=== PATIENT | female | born 1940 | race Caucasian/White ===

== ENCOUNTER 2016-12-22 09:37 | Day surgery (SDC) | payer OTHER, BC ==
[2016-12-21 15:24] VITALS: BMI 29.2
[2016-12-22] MEDS ORDERED: PROPOFOL 20 ML ONE ×3 (10:22)
[2016-12-22] MEDS ORDERED: LIDOCAINE HCL/PF 2% SDV 5ML VIAL ONE (10:22)
[2016-12-22 11:39] VITALS: TEMP 97.8
[2016-12-22 12:28] VITALS: BP 134/64; PULSE 67
--- NOTE | 2016-12-23 14:24 | PATH ---
Surgical Pathology Report Patient Name: JANELLE ZAMBRANO [facility]. Rec. #: [id number] /Age/Gender: 1940 (Age: 76) / F Account: [id number] Location: U-ENDOSCOPY Taken: 12/22/2016 Received: 12/22/2016 Reported: 12/23/2016 Physicians: Oscar Chin D.O. Specimen(s) Received BX PROXIMAL TRANSVERSE COLON POLYP Clinical History History of colon polyps and constipation Transverse colon polyp, diverticulosis, tattoo Final Diagnosis COLON, PROXIMAL TRANSVERSE, POLYP, BIOPSY: POLYPOID FRAGMENTS OF COLONIC MUCOSA WITH MILD ACTIVE INFLAMMATION, LAMINA PROPRIA EDEMA AND FOCAL HYPERPLASTIC CHANGES MOST CONSISTENT WITH INFLAMMATORY-TYPE POLYP. Electronically Signed David Valles M.D. Gross Description Received in formalin, labeled "biopsy proximal transverse colon polyp" are 3 lima, irregular portions of soft tissue ranging from 0.1-0.3 cm in greatest dimension. The specimens are submitted in toto in one cassette. 12/22/201612/22/2016
== END 2016-12-22 12:27 | disposition home or self-care (01) ==
LOC: JOR 09:37 → JASU-ENDO 09:37
PROVIDERS: ATTEND Internal Medicine Gastroenterology
PROC: 0DBL8ZX Excision of Transverse Colon, Via Natural or Artificial Opening Endoscopic, Diagnostic (ICD-10-PCS; principal; 2016-12-22 10:30)
DX: Z12.11 Encounter for screening for malignant neoplasm of colon (principal); Z86.010 Personal history of colon polyps; K57.30 Diverticulosis of large intestine without perforation or abscess without bleeding; D12.3 Benign neoplasm of transverse colon; K64.8 Other hemorrhoids; K63.89 Other specified diseases of intestine
CPT/HCPCS: 88305-TC

== ENCOUNTER 2019-07-14 14:58 | Emergency (ER) | payer OTHER, BC ==
--- NOTE | 2019-07-14 15:05 | PDOC ---
Rapid Medical Evaluation Chief Complaint: Injury Time Seen by Provider: 07/14/19 15:01 Medical Evaluation: Allergies Allergy/AdvReac Type Severity Reaction Status Date / Time Sulfa (Sulfonamide Allergy Verified 10/20/15 13:52 Antibiotics) 07/14/19 15:01 I have performed a brief in-person evaluation of this patient. The patient presents with a chief complaint of: L hip pain, L leg laceration s/ p falling off a step stool while trying to fix her closet. She landed on her L hip. NO head injury, no LOC. Denies CP/sweating/dizziness before or after fall. Tetanus status unknown. Pt denies AC use Pertinent physical exam findings: L lower leg laceration. L hip tenderness diffusely I have ordered the following: hip/lower leg rays. Tetanus shot The patient will proceed to the ED for further evaluation. Discharge Disposition - Diagnosis Fall - Referrals - Patient Instructions - Post Discharge Activity
[2019-07-14] MEDS ORDERED: DIPHTH,PERTUSS(ACELL),TET 0.5 ML DISP.SYRIN IM ONE (15:06)
[2019-07-14 15:14] VITALS: BMI 28.1
--- NOTE | 2019-07-14 16:21 | PDOC ---
History of Present Illness - General Chief Complaint: Injury Stated Complaint: FALL Time Seen by Provider: 07/14/19 15:01 Past History - Past Medical History Allergies/Adverse Reactions: Allergies Allergy/AdvReac Type Severity Reaction Status Date / Time Sulfa (Sulfonamide Allergy Verified 07/14/19 15:04 Antibiotics) Home Medications: Ambulatory Orders Salmeterol/Fluticasone [Advair 250Mcg/50Mcg -] 1 inh PO ASDIR 04/02/14 Alprazolam [Xanax] 1 mg PO TID PRN 10/20/15 Ibuprofen [Motrin -] 400 mg PO Q4H PRN #0 tablet 10/23/15 Ranitidine [Zantac -] 150 mg PO BID tablet 10/23/15 Cephalexin [Keflex] 500 mg PO QID 5 Days #20 capsule 07/14/19 Anemia: No Asthma: No Cancer: Yes (LUNG) Cardiac Disorders: No CVA: No COPD: Yes CHF: No Dementia: No Diabetes: No GI Disorders: Yes (DIVERTICULOSIS;ULCERS) Disorders: No HTN: No Hypercholesterolemia: No Liver Disease: Yes (ALAN) Seizures: No Thyroid Disease: No - Surgical History Abdominal Surgery: No Appendectomy: No Cardiac Surgery: No Cholecystectomy: No Lung Surgery: Yes (WEDGE RESECTION OF RIGHT LUNG CANCER) Neurologic Surgery: No Orthopedic Surgery: Yes (GREG. HIP REPLACEMENT) - Psycho Social/Smoking Cessation Hx Smoking History: Never smoked Have you smoked in the past 12 months: No If you are a former smoker, when did you quit?: 8 YRS AGO Hx Alcohol Use: Yes (SOCIAL) Drug/Substance Use Hx: No Substance Use Type: None Hx Substance Use Treatment: No *Physical Exam - Vital Signs Last Vital Signs Temp Pulse Resp BP Pulse Ox 97.4 F L 79 18 124/57 L 96 07/14/19 15:12 07/14/19 15:12 07/14/19 15:12 07/14/19 15:12 07/14/19 15:12 Discharge - Discharge Information Problems reviewed: Yes Clinical Impression/Diagnosis: Fall Qualifiers: Encounter type: initial encounter Qualified Code(s): W19.XXXA - Unspecified fall, initial encounter Condition: Stable Disposition: HOME - Admission No - Additional Discharge Information Prescriptions: Cephalexin [Keflex] 500 mg PO QID 5 Days #20 capsule - Follow up/Referral Referrals: Geraldo Pratt MD [Primary Care Provider] - - Patient Discharge Instructions Patient Printed Discharge Instructions: DI for Laceration Repair Steri-Strips Additional Instructions: Please prevent getting your wounds wet. Please return to the ED or your PCP to have the wound checked in 2-3 days. Please use the antibiotics as instructed. Please return to the ED if you have fevers, chills, swelling, worsening pain. - Post Discharge Activity
--- NOTE | 2019-07-14 16:55 | PDOC ---
Attending Attestation - Resident Resident Name: Iza Wong - ED Attending Attestation I have performed the following: I have examined & evaluated the patient, The case was reviewed & discussed with the resident, I agree w/resident's findings & plan, Exceptions are as noted - HPI HPI: 07/16/19 00:12 78 years old with mechanical fall patient fell off a stepstool try to fix her closet landed on her left lower extremity complaining of mild left hip discomfort but is able to ambulate no shortening no discomfort her left lower extremity has a skin tear laceration Tetanus not up-to-date
[2019-07-14 18:04] VITALS: BP 126/68; PULSE 88; TEMP 98.5
== END 2019-07-14 18:05 | disposition home or self-care (01) ==
LOC: JER 14:58
PROC: 3E0234Z Introduction of Serum, Toxoid and Vaccine into Muscle, Percutaneous Approach (ICD-10-PCS; principal; 2019-07-14)
DX: S81.812A Laceration without foreign body, left lower leg, initial encounter (principal); M25.552 Pain in left hip; S79.812A Other specified injuries of left hip, initial encounter; W11.XXXA Fall on and from ladder, initial encounter; Y93.E9 Activity, other interior property and clothing maintenance; Y92.038 Other place in apartment as the place of occurrence of the external cause; Y99.8 Other external cause status; Z96.643 Presence of artificial hip joint, bilateral; J44.9 Chronic obstructive pulmonary disease, unspecified; K75.81 Nonalcoholic steatohepatitis (NASH); Z85.118 Personal history of other malignant neoplasm of bronchus and lung; Z87.19 Personal history of other diseases of the digestive system; Z88.2 Allergy status to sulfonamides
CPT/HCPCS: 90471; 99283-25

== ENCOUNTER 2019-07-17 13:23 | Emergency (ER) | payer OTHER, BC ==
--- NOTE | 2019-07-17 13:39 | PDOC ---
Rapid Medical Evaluation Time Seen by Provider: 07/17/19 13:37 Medical Evaluation: Allergies Allergy/AdvReac Type Severity Reaction Status Date / Time Sulfa (Sulfonamide Allergy Verified 07/14/19 15:04 Antibiotics) 07/17/19 13:37 HPI: wound recheck L leg wound PE: wound covered pt bears weight ORDERS: nothing Discharge Disposition - Diagnosis Visit for wound check - Referrals - Patient Instructions - Post Discharge Activity
[2019-07-17 13:43] VITALS: BP 126/60; PULSE 65; TEMP 98.3; BMI 28.1
--- NOTE | 2019-07-17 15:28 | PDOC ---
History of Present Illness - General Chief Complaint: Revisit,Wound Recheck Stated Complaint: REVISIT Time Seen by Provider: 07/17/19 13:37 History Source: Patient - History of Present Illness Initial Comments: 07/17/19 16:47 Chief complaint: Wound check Patient is a 78-year-old female, history of COPD, who had injured her leg on a step stool 2 days ago and seen in the ER. She had skin tear which was Steri- Stripped and Dermabonded. Patient has no complaints and has an appointment at wound care tomorrow she was given Tdap when she was in the ER the other day. GENERAL/CONSTITUTIONAL: No fever, weakness. dizziness HEAD, EYES, EARS, NOSE AND THROAT: No change in vision. No ear pain or discharge. No sore throat. CARDIOVASCULAR: No chest pain RESPIRATORY: No shortness of breath or cough GASTROINTESTINAL: No pain, nausea, vomiting, diarrhea or constipation GENITOURINARY: No dysuria MUSCULOSKELETAL: No neck or back pain SKIN: No rash NEUROLOGIC: No headache, vertigo, loss of consciousness, or loss of sensation. GENERAL: The patient is awake, alert, and fully oriented, in no acute distress. HEAD: Normal with no signs of trauma. EYES: Pupils equal, round and reactive to light, sclera anicteric, conjunctiva clear. ENT: pharynx: no erythema, no exudate, uvula midline NECK: supple EXTREMITIES: Left sahni with Steri-Strips and Dermabond visible, wound healing, no discharge or signs of infection. Rest of extremities normal range of motion , no edema. Neurovascular intact NEUROLOGICAL: Normal speech, normal gait. SKIN: Warm, Dry Past History - Past Medical History Allergies/Adverse Reactions: Allergies Allergy/AdvReac Type Severity Reaction Status Date / Time Sulfa (Sulfonamide Allergy Verified 07/17/19 13:40 Antibiotics) Home Medications: Ambulatory Orders Salmeterol/Fluticasone [Advair 250Mcg/50Mcg -] 1 inh PO ASDIR 04/02/14 Alprazolam [Xanax] 1 mg PO TID PRN 10/20/15 Ibuprofen [Motrin -] 400 mg PO Q4H PRN #0 tablet 10/23/15 Ranitidine [Zantac -] 150 mg PO BID tablet 10/23/15 Cephalexin [Keflex] 500 mg PO QID 5 Days #20 capsule 07/14/19 Anemia: No Asthma: No Cancer: Yes (LUNG) Cardiac Disorders: No CVA: No COPD: Yes CHF: No Dementia: No Diabetes: No GI Disorders: Yes (DIVERTICULOSIS;ULCERS) Disorders: No HTN: No Hypercholesterolemia: No Liver Disease: Yes (ALAN) Seizures: No Thyroid Disease: No - Surgical History Abdominal Surgery: No Appendectomy: No Cardiac Surgery: No Cholecystectomy: No Lung Surgery: Yes (WEDGE RESECTION OF RIGHT LUNG CANCER) Neurologic Surgery: No Orthopedic Surgery: Yes (GREG. HIP REPLACEMENT) - Psycho Social/Smoking Cessation Hx Smoking History: Former smoker Have you smoked in the past 12 months: No If you are a former smoker, when did you quit?: 8 YRS AGO Information on smoking cessation initiated: No Hx Alcohol Use: No Drug/Substance Use Hx: No Substance Use Type: None Hx Substance Use Treatment: No *Physical Exam - Vital Signs Last Vital Signs Temp Pulse Resp BP Pulse Ox 98.3 F 65 18 126/60 100 07/17/19 13:40 07/17/19 13:40 07/17/19 13:40 07/17/19 13:40 07/17/19 13:40 Medical Decision Making - Medical Decision Making 07/17/19 16:49 78-year-old female, with skin tear, Steri-Strip and Dermabond did 2 days ago in ER here for wound check without complaints, taking Keflex, has wound care appointment tomorrow. Wound was evaluated and redressed and all questions answered Discussed issues, findings, results, applicable medications and treatments and follow-up. All these were understood and all questions were answered Discharge - Discharge Information Problems reviewed: Yes Clinical Impression/Diagnosis: Visit for wound check Condition: Stable Disposition: HOME - Admission No - Follow up/Referral Referrals: Geraldo Pratt MD [Primary Care Provider] - - Patient Discharge Instructions Additional Instructions: Follow-up with wound care doctor as scheduled tomorrow Leave bandage on This is unlikely but return sooner if you have fever or severe pain or severe redness - Post Discharge Activity
== END 2019-07-17 15:32 | disposition home or self-care (01) ==
LOC: JERFT 13:23
DX: Z48.817 Encounter for surgical aftercare following surgery on the skin and subcutaneous tissue (principal)
CPT/HCPCS: 99281-25